=== PATIENT | male | born 1990 | race Caucasian/White ===

== ENCOUNTER 2019-03-19 10:51 | Emergency (ER) | payer OTHER, SELFPAY ==
[2019-03-19 10:52] VITALS: BP 124/80; PULSE 78; RESP 18; TEMP 36.6; O2SAT 98; BMI 27.6
--- NOTE | 2019-03-19 11:54 | HMH.EDUTC ---
[facility] [place] Clinical Impression: URI (upper respiratory infection) Qualifiers: URI type: unspecified URI Qualified Code(s): J06.9 - Acute upper respiratory infection, unspecified Disposition: Home, Self-Care Condition on Discharge: Good Instructions: Sore Throat, DI for Sinusitis, Sinusitis Additional Instructions: *Monitor Temp, Over the counter Motrin or Tylenol as directed/as needed Tylenol every 4 hours and Motrin every 6 hours (as long as your family doctor has told you that you can take it) for fever or pain. and straight to ER if unable to lower temp less than 101.0 after medication given *Warm salt water gargles may help to soothe the throat *Throat Lozenges *Warm fluids *Sleep elevated *Humidifier/Vaporizer *Flonase 2 sprays in each nostril daily but be aware that it may take 2-3 days before you notice improvement Follow up IMMEDIATELY for new or worsening symptoms or no Noticeable improvement over the next 48-72 hours. 911 for difficulty breathing or swallowing Prescriptions: Fluticasone Propionate [Flonase 50mcg nasal spray 16gm] 1 - 2 spr NS DAILY #1 bottle Prescription Printed Cefdinir [Omnicef 300mg Capsule] 300 mg PO BID #20 cap Prescription Printed Referrals: Ayan Morris MD [Primary Care Provider] - As needed Time of Disposition: 11:59 Medical Decision Making - Howard Inquiry Pt receiving controlled substance: No Howard was queried for this patient: No Vital Signs: 03/19/19 10:52 Temperature 97.9 F Temperature Source Oral Pulse Rate [Right] 78 Respiratory Rate 18 Blood Pressure [Right Arm] 124/80 Blood Pressure Mean [Right Arm] 94 02 Sat by Pulse Oximetry 98 - Reevaluation(s) Time: 11:58 Reevaluation #1: Patient states that he is allergic to Amoxicillin but has taken Cefdinir before without reaction [facility] [place] HPI - General Stated complaint: possible Strep Time Seen by Provider: 03/19/19 11:54 Mode of Arrival: Ambulatory Limitations: No Limitations Description of Symptoms (Recalled from Triage Doc. by RN): C/O sinus pressure ad drainage into throat causing it to be sore for several days. HEENT Symptoms (Recalled from RN notes): Yes Resp Symptoms (Recalled from RN notes): Yes Skin Symptoms (Recalled from RN notes): No MS Symptoms (Recalled from RN notes): No Functional Status (Recalled from RN notes): na - History of Present Illness Provider Complaint: Patient states that he has been having sore throat , sinus pain and pressure along with drainage in the back of his thorat States that he has been sick for several days and it has continued to get worse - Related Data Previous Rx's Medication Instructions Recorded Cefdinir [Omnicef 300mg Capsule] 300 mg PO BID #20 cap 03/19/19 Fluticasone Propionate [Flonase 1 - 2 spr NS DAILY #1 bottle 03/19/19 50mcg nasal spray 16gm] Allergies Allergy/AdvReac Type Severity Reaction Status Date / Time amoxicillin [From AUGMENTIN] Allergy Unknown Unverified 03/09/17 14:48 clarithromycin [From BIAXIN] Allergy Unknown Unverified 03/09/17 14:48 clavulanic acid Allergy Unknown Unverified 03/09/17 14:48 [From AUGMENTIN] - Worker's Comp Is this a Worker's Comp case?: No [facility] History - Hepatitis A Screen Drug use history?: No High risk sexual behaviors?: No History of sexually transmitted infection?: No Currently employed?: No Childcare worker?: No Do you have indoor plumbing?: Yes Do you have electricity?: Yes Attestation statement:: This patient has been screened for Hepatitis A risk factors. I have reviewed the patient's past medical history: Yes - Social History Alcohol Intake: never Occupational Status: employed ROS Obtained: Yes All systems reviewed & no additional complaints, Yes Systems reviewed as appropriate & no additional complaints - Constitutional Constitutional: Reports fever(s), Reports headache(s) - ENT Ears, Nose, Mouth, and Throat: Reports sinus pain, Reports sinus pressure
[2019-03-19 12:07] VITALS: BP 123/78; PULSE 78; RESP 18; TEMP 36.7; O2SAT 98
== END 2019-03-19 12:07 | disposition home or self-care (01) ==
PROVIDERS: Emergency Provider Nurse Practitioner; PCP Internal Medicine Adolescent Medicine
DX: J06.9 Acute upper respiratory infection, unspecified (principal); Z79.899 Other long term (current) drug therapy; Z88.1 Allergy status to other antibiotic agents
CPT/HCPCS: 99201